=== PATIENT | male | born 1945 | race Caucasian/White ===

== ENCOUNTER 2022-07-22 14:25 | Emergency (ER) | payer OTHER, SELFPAY ==
[2022-07-22 14:37] VITALS: BP 172/83; PULSE 77; RESP 17; TEMP 37.2; O2SAT 100
--- NOTE | 2022-07-22 14:46 | ED.URI ---
HPI - URI/Sore Throat General Chief Complaint: Upper Respiratory Infection Stated Complaint: uri Time Seen by Provider: 07/22/22 15:00 Source: patient and RN notes reviewed Mode of arrival: ambulatory Limitations: no limitations History of Present Illness HPI Narrative: 77-year-old male presents concern for sneezing, cough, clear nasal drainage. Reports symptoms started yesterday. Reports he has been exposed to COVID. His reports he has had a low-grade temperature. Reports he has taken zinc and Benadryl. MD elicited complaint: cough and rhinorrhea Related Data Home Medications Medication Instructions Recorded Confirmed atorvastatin 80 mg tablet 80 mg DIRECTED 07/22/22 07/22/22 glipizide 10 mg tablet 10 mg DIRECTED 07/22/22 07/22/22 omeprazole 40 mg capsule,delayed 40 mg DIRECTED 07/22/22 07/22/22 release Allergies Allergy/AdvReac Type Severity Reaction Status Date / Time Penicillins Allergy Unknown RASH Verified 11/05/18 18:35 Review of Systems Review of Systems: CONSTITUTIONAL: Denies malaise, chills, sweats. Reports low-grade fever. EYES: Denies visual changes, redness, or discharge. ENT: Reports rhinorrhea, congestion, sneezing. Denies sinus pain, otalgia and sore throat. CARDIOVASCULAR: Denies chest pain, palpitations, or edema. RESPIRATORY: Reports cough. Denies dyspnea. GASTROINTESTINAL: Denies abdominal pain, nausea, vomiting, diarrhea SKIN: Denies rash or itching. MUSCULOSKELETAL: Denies myalgia. NEUROLOGIC: Denies headache. All systems reviewed & are unremarkable except as noted in HPI and below PMFSH Comments At time of signature, agree with nursing past medical, surgical, social and family history. There is no relevant family history pertinent to the presenting complaint Exam Narrative: GENERAL: Well-appearing, well-nourished, and in no acute distress. HEAD: Normocephalic EYES: PERRLA, conjunctivae clear ENT: Nares clear, turbinates edematous and erythematous, clear discharge. Mucous membranes moist. TM pearly asher with sharp light reflex bilaterally; no tragal tenderness. Oropharynx not erythematous without lesions. Tonsils not enlarged and without exudate, no drooling, no hoarseness, no trismus, uvula midline. NECK: Supple. No lymphadenopathy CHEST: Clear to auscultation, breath sounds equal. No wheezing, rhonchi, rales, or stridor. No respiratory distress, speaks in full sentences. HEART: Regular rate and rhythm. No murmur heard. SKIN: Warm, dry, no rash. NEURO: Alert and oriented x3. PSYCH: Normal mood and affect Course Course Emergency Course: Patient expresses interested in taking paxlovid, however patient's rapid COVID test is negative, PCR is being sent the lab Patient is aware of diagnosis, understands and agrees to treatment plan. Anticipatory guidance given. Patient agrees to follow-up as directed and is aware of reasons to seek care at the emergency department. Portions of this record may have been created with voice recognition software Level of Care: Express Care Visit Vital Signs Vital signs: Vital Signs Temperature 98.9 F 07/22/22 14:37 Pulse Rate 77 07/22/22 14:37 Respiratory Rate 17 07/22/22 14:37 Blood Pressure 172/83 H 07/22/22 14:37 Pulse Oximetry 100 07/22/22 14:37 Oxygen Delivery Room Air 07/22/22 14:37 Temperature 98.9 F 07/22/22 14:37 Pulse Rate 77 07/22/22 14:37 Respiratory Rate 17 07/22/22 14:37 Blood Pressure 172/83 H 07/22/22 14:37 Pulse Oximetry 100 07/22/22 14:37 Oxygen Delivery Room Air 07/22/22 14:37 Reviewed. MDM - URI/Sore Throat MDM Narrative Medical decision making narrative: Differential diagnosis considered: Garcia virus, strep pharyngitis, allergic rhinitis, upper respiratory tract infection, sinusitis, rhinosinusitis, nasopharyngitis. viral pharyngitis, otitis media, otitis externa, pneumonia, bronchitis, viral cough syndrome, viral syndrome, and influenza. Exam findings show no acute co
[2022-07-22 20:42] LABS: SARS-CoV-2 RNA PCR Negative
== END 2022-07-22 15:21 | disposition home or self-care (01) ==
PROVIDERS: Emergency Provider Nurse Practitioner
DX: J06.9 Acute upper respiratory infection, unspecified (principal); Z20.822 Contact with and (suspected) exposure to COVID-19
CPT/HCPCS: 87426; 99213; C9803; G0463; U0003; U0005

== ENCOUNTER 2023-12-15 08:20 | Emergency (ER) | payer MEDICARE, OTHER, SELFPAY ==
[2023-12-15] VITALS (11 sets, daily range): BP systolic 151–172; BP diastolic 77–96; PULSE 71–79; RESP 13–21; TEMP 36.8; O2SAT 96–100
--- NOTE | ~2023-12-15 | XR_ITS ---
EXAMINATION: XR chest 2V 12/15/2023 09:34 INDICATION: Hypoglycemia. Weakness. PROCEDURE: 2 view chest COMPARISON: No prior studies for comparison. FINDINGS: The lungs are clear. The cardiomediastinal silhouette is within normal limits. There are no pleural effusions. There is no pneumothorax suspected. IMPRESSION: 1: NO ACUTE CARDIOPULMONARY DISEASE. Reviewed, dictated and finalized at location B.
[2023-12-15 08:28] LABS: Glucose Point of Care 104 mg/dl (65-105)
--- NOTE | 2023-12-15 09:06 | ECG_ITS ---
Test Date: 2023-12-15 09:11:33 Measurements Intervals [place] Rate: 75 P: 8 ND: 156 QRS: -3 QRSD: 103 T: 66 QT: 381 QTc: 425 Interpretive Statements SINUS RHYTHM NONSPECIFIC T-WAVE ABNORMALITY No previous ECG available for comparison Electronically Signed On 12-16-2023 15:48:06 CDT by Jasper Hernandez M.D.
--- NOTE | 2023-12-15 09:22 | ED.GENADULT ---
HPI - General Adult General Chief complaint: Recheck/Abnormal Lab/Rx Stated complaint: low BG Time Seen by Provider: 12/15/23 08:25 History of Present Illness HPI narrative: Patient is a 78-year-old male who presents ER after having an episode of hypoglycemia. His daughter checked on him and he is unresponsive. Blood sugar was 36. Corrected by EMS. Patient awake alert orient x3 at this time. Patient does take some insulin long-acting at home. He is also on glipizide. Of note patient has a swollen lower lip consistent with angioedema. He is unsure what blood pressure medicine he takes. [facility] appears he is on l[facility]opril 20 mg. Reports it was larger yesterday than it is today. He has not yet taken his home medications today. No difficulty breathing or swallowing. Related Data Home Medications Medication Instructions Recorded Confirmed atorvastatin 80 mg tablet 80 mg DAILY 07/22/22 07/22/22 glipizide 10 mg tablet 10 mg BID 07/22/22 07/22/22 insulin glargine 100 unit/mL 30 unit subcut DAILY 12/15/23 12/15/23 subcutaneous cartridge metformin 1,000 mg tablet 1,000 mg PO BID 12/15/23 12/15/23 sildenafil 100 mg tablet 100 mg PO DAILY PRN Erectile 12/15/23 12/15/23 Dysfunction Allergies Allergy/AdvReac Type Severity Reaction Status Date / Time Penicillins Allergy Unknown RASH Verified 12/15/23 08:22 Review of Systems Review of Systems: All systems reviewed & are unremarkable except as noted in HPI and below Constitutional: Constitutional: Reports no additional constitutional complaints Cardiovascular: Cardiovascular: Reports no additional cardiovascular complaints Respiratory: Respiratory: Reports no additional respiratory complaints Gastrointestinal: Gastrointestinal: Reports no additional gastrointestinal complaints Musculoskeletal: Musculoskeletal: Reports no additional musculoskeletal complaints Neurologic: Reports system reviewed and no additional complaints, except as documented PMFSH Past Medical History Medical History (Updated 12/15/23 @ 13:21 by Rafael Taylor MD) Diabetes Hyperlipidemia Hypertension Exam Narrative: GENERAL: Well-appearing, well-nourished, and in no acute distress. HEAD: Normocephalic, atraumatic. ENT: Mucous membranes moist. Angioedema of the lower lip, normal posterior orpharynx. NECK: Supple. CHEST: Clear to auscultation. No respiratory distress. HEART: Regular rate and rhythm. Normal peripheral pulses. ABDOMEN: Soft, nontender, nondistended. EXTREMITIES: Normal range of motion. No edema. SKIN: Warm, dry, no rash. NEURO: Alert and oriented x3. PSYCH: Normal mood and affect. Course Course Emergency Course: Patient did have a drop in his blood sugar but then is normalized after D50 and food. He would like to go home. Educated on lisinopril causing his lip swelling the need to discontinue the medication. He has follow-up scheduled next week with his PCP. Vital Signs Vital signs: Vital Signs Temperature 98.3 F 12/15/23 08:08 Pulse Rate 71 12/15/23 08:08 Respiratory Rate 13 12/15/23 08:08 Blood Pressure 169/96 H 12/15/23 08:08 Pulse Oximetry 99 12/15/23 08:08 Oxygen Delivery Room Air 12/15/23 08:08 Temperature 98.3 F 12/15/23 08:08 Pulse Rate 77 12/15/23 12:30 Respiratory Rate 20 12/15/23 12:30 Blood Pressure 152/77 H 12/15/23 12:30 Pulse Oximetry 98 12/15/23 12:30 Oxygen Delivery Room Air 12/15/23 08:08 Medical Decision Making Vital Signs Vital Signs: Vital Signs Temperature 98.3 F 12/15/23 08:08 Pulse Rate 71 12/15/23 08:08 Respiratory Rate 13 12/15/23 08:08 Blood Pressure 169/96 H 12/15/23 08:08 Pulse Oximetry 99 12/15/23 08:08 Oxygen Delivery Room Air 12/15/23 08:08 Temperature 98.3 F 12/15/23 08:08 Pulse Rate 77 12/15/23 12:30 Respiratory Rate 20 12/15/23 12:30 Blood Pressure 152/77 H 12/15/23 12:30 Pulse Oximetry 98
[2023-12-15 09:29] LABS: Basophils Percent Auto 0.3 % (0.2-1.2); Eosinophils Absolute Auto 0.1 K/mm3 (0-0.3); Eosinophils Percent Auto 0.8 % (0-4.4); Hematocrit 40.2 % (42.0-52.0); Hemoglobin 13.5 g/dL (14.0-18.0); Immature Granulocyte Absolute 0.05 K/mm3 (0.00-0.031); Immature Granulocyte Percent A 0.5 % (0-0.5); Lymphocytes Percent Auto 11.8 % (18.3-44.2); Mean Corpuscular HGB Conc 33.6 g/dl (32-36); Mean Corpuscular Hemoglobin 29.8 pg (26-34); Mean Corpuscular Volume 88.7 fl (80-100); Mean Platelet Volume 11.1 fl (7.4-10.4); Monocytes Absolute Auto 0.9 K/mm3 (0.1-0.6); Monocytes Percent Auto 8.1 % (2.6-8.5); Neutrophils Absolute Auto 8.7 K/mm3 (1.3-6.7); Neutrophils Percent Auto 78.5 % (45.5-73.1); Platelet Count Result 180 k/mm3 (150-375); Red Blood Count 4.53 M/mm3 (4.6-6.20); Red Cell Distribution Width 13.2 % (11.5-14.5)
[2023-12-15 09:40] LABS: Alanine Aminotransferase 17 U/L (6-50); Albumin Level 4.2 g/dL (3.5-5.1); Alkaline Phosphatase 69 U/L (38-126); Anion Gap 11 mmol/L (4-12); Aspartate Amino Transferase 29 U/L (17-59); Bilirubin,Total 1.3 mg/dL (0.2-1.3); Blood Urea Nitrogen 16 mg/dL (9-20); Calcium 9.4 mg/dL (8.4-10.2); Carbon Dioxide 25 mmol/L (22-30); Chloride 103 mmol/L (98-107); Estimated CRCL calculation 49 ml/min; Estimated Glomerular Filt Rate > 60; Glucose 64 mg/dL (65-110); Potassium 3.9 mmol/L (3.4-5.0); Sodium 139 mmol/L (137-145)
[2023-12-15 10:42] LABS: Appearance Urine Clear (Clear); Bacteria Urine None Seen /hpf; Bilirubin Urine Negative (Negative); Blood Urine Negative (Negative); Color Urine Dark Yellow (Yellow); Glucose Urine UA 1+ mg/dL (Negative); Ketones Urine Trace mg/dL (Negative); Leukocyte Esterase Ur Negative LEU/UL (Negative); Nitrate Urine Negative (Negative); Non Pathogenic Casts 0-2; Protein Urine Trace mg/dL (Negative); RBC Urine 0-2 /hpf (0-2); Specific Grav Ur 1.029 (1.001-1.035); Squamous Epithelial Cell Urine None Seen /hpf (Few); WBC Urine 0-5 /hpf (0-3); pH Urine 5.5 (5.0-9.0)
[2023-12-15 10:43] LABS: Add Urine Microscopic? YES
[2023-12-15 11:16] LABS: Glucose Point of Care 38 mg/dl (65-105)
[2023-12-15] MEDS: DEXTROSE 50% 25 GM/50 ML SYRINGE IV PUSH (11:19)
[2023-12-15 12:07] LABS: Glucose Point of Care 118 mg/dl (65-105)
[2023-12-15 13:13] LABS: Glucose Point of Care 124 mg/dl (65-105)
== END 2023-12-15 13:50 | disposition home or self-care (01) ==
PROVIDERS: Emergency Provider Emergency Medicine
DX: E11.649 Type 2 diabetes mellitus with hypoglycemia without coma (principal); T78.3XXA Angioneurotic edema, initial encounter; I10 Essential (primary) hypertension; E78.5 Hyperlipidemia, unspecified; Z79.4 Long term (current) use of insulin; Z79.84 Long term (current) use of oral hypoglycemic drugs; Z79.899 Other long term (current) drug therapy
CPT/HCPCS: 36415; 71046; 80053; 81001; 82948; 85025; 93005; 96374; 99284